=== PATIENT | female | born 1965 | race Caucasian/White ===

== ENCOUNTER → 2020-04-25 | Outpatient (CLI) | payer BC ==
[~2020-04-25] MED LIST: ALDACTONE50 MG PO; AUGMENTIN 500-1 EACH PO; DIOVAN160 MG PO; DISKETS40 MG PO; DUAC 1.2-5% GEL45 GM TP; HYDROCODONE-APA1 TA1 PO; LIDODERM 5%1 PATC1 TRANSDERM; METHADONE HCL 110 M1 PO; NEURONTIN 300300 M1 PO; NORCO 5-325 TA1 EACH PO; PERCOCET 7.5-31 EACH PO; PHENERGAN 25 MG25 M1 PO; PHENERGAN50 MG RC; PROBIOTIC1 EAC1 PO; PROZAC40 MG PO; UNICOMPLEX M TA1 TA1 PO; WELCHOL 625 MG625 M1 PO
== END ==
LOC: LAB 12:34
PROVIDERS: ATTEND Nurse Practitioner
DX: Z20.828 Contact with and (suspected) exposure to other viral communicable diseases (principal)